=== PATIENT | female | born 1985 | race Caucasian/White ===

== ENCOUNTER 2016-07-21 16:49 | Observation (INO) | payer OTHER ==
[~2016-07-21] VITALS: Ht 170.2 cm; Wt 74.8 kg
[2016-07-21] MEDS ORDERED: TERBUTALINE 1 MG/ML VIAL SUBQ SCH ×2 (17:25→17:40)
[2016-07-21] MEDS ORDERED: BETAMETH ACET/BETAMETH NA PH 30 MG/5 ML VIAL IM SCH (17:36)
[2016-07-21] MEDS ORDERED: TERBUTALINE 1 MG/ML VIAL SUBQ PRN (18:00)
[2016-07-21] MEDS ORDERED: TERBUTALINE 1 MG/ML VIAL SUBQ ONE (18:10)
[2016-07-21] MEDS ORDERED: BETAMETH ACET/BETAMETH NA PH 30 MG/5 ML VIAL IM ONE (18:11)
[2016-07-21] MEDS ORDERED: NALBUPHINE 10 MG/ML AMP IVP PRN (18:35)
[2016-07-21] MEDS: LACTATED RINGERS 1,000 ML IV SCH (18:42)
[2016-07-21] MEDS ORDERED: NALBUPHINE HYDROCHLORIDE 10 MG/ML VIAL ONE (19:06)
[2016-07-21] MEDS ORDERED: MORPHINE SULFATE 10 MG/ML SYR IVP PRN (22:35)
[2016-07-21] MEDS ORDERED: PROMETHAZINE 25 MG/ML VIAL ONE (22:44)
[2016-07-21] MEDS ORDERED: MORPHINE SULFATE 10 MG/ML SYR ONE (22:44)
[2016-07-21] MEDS: PROMETHAZINE 25 MG/ML VIAL IVP PRN (22:48)
[2016-07-22] MEDS ORDERED: TERBUTALINE 2.5 MG TAB ONE ×4 (00:10→18:27)
[2016-07-22] MEDS: TERBUTALINE 2.5 MG TAB PO SCH ×3 (00:11→14:12)
[2016-07-22] MEDS ORDERED: MORPHINE SULFATE 10 MG/ML SYR IVP PRN (03:00)
[2016-07-22] MEDS ORDERED: MORPHINE SULFATE 10 MG/ML SYR ONE ×2 (03:05→12:35)
[2016-07-22] MEDS ORDERED: PROMETHAZINE 25 MG/ML VIAL ONE (03:06)
[2016-07-22] MEDS: PROMETHAZINE 25 MG/ML VIAL IVP PRN (03:09)
--- NOTE | 2016-07-22 08:46 | NUR ---
PATIENT HAS BEEN SCREENED AND CATEGORIZED LOW NUTRITION RISK. PATIENT WILL BE SEEN WITHIN 7 DAYS OF ADMISSION. 07/28/[address]
[2016-07-22] MEDS: LACTATED RINGERS 1,000 ML IV SCH ×2 (10:52→15:57)
[2016-07-22] MEDS ORDERED: CYCLOBENZAPRINE 10 MG TAB PO SCH (16:00)
[2016-07-22] MEDS ORDERED: BETAMETH ACET/BETAMETH NA PH 30 MG/5 ML VIAL IM ONE (18:27)
[2016-09-03] MEDS ORDERED: MOTRIN600 MG PO (10:48)
== END 2016-07-22 19:50 | disposition home or self-care (01) ==
LOC: MLD 16:49
PROVIDERS: ADMIT Obstetrics & Gynecology; ATTEND Obstetrics & Gynecology
DX: O26.893 Other specified pregnancy related conditions, third trimester (principal); R10.9 Unspecified abdominal pain; Z3A.32 32 weeks gestation of pregnancy
CPT/HCPCS: 36415; 76770; 76805; 80053; 81001; 85025; 85379; 85384; 85610; 85730; 90472; 96361; 96372; 96374; 96375; 96376; C1758; G0378; J0702; J2270; J2300; J2550; J3105; J7120; Q0092

== ENCOUNTER 2016-08-21 14:32 | Observation (INO) | payer OTHER ==
[~2016-08-21] VITALS: Ht 170.2 cm; Wt 63.5 kg
[2016-08-21 15:07] VITALS: BP 109/57
[2016-09-03] MEDS ORDERED: MOTRIN600 MG PO (10:48)
== END 2016-08-21 16:20 | disposition home or self-care (01) ==
LOC: MLD 14:32
PROVIDERS: ADMIT Obstetrics & Gynecology; ATTEND Obstetrics & Gynecology
DX: O26.893 Other specified pregnancy related conditions, third trimester (principal); R10.9 Unspecified abdominal pain; M54.9 Dorsalgia, unspecified; Z3A.37 37 weeks gestation of pregnancy
CPT/HCPCS: 76805; G0378; Q0092

== ENCOUNTER 2016-08-30 20:53 | Inpatient (IN) | payer OTHER ==
[~2016-08-30] VITALS: Ht 170.2 cm; Wt 78.5 kg
[2016-08-30] MEDS: LACTATED RINGERS 1,000 ML IV SCH (22:45)
[2016-08-30] MEDS ORDERED: TERBUTALINE 1 MG/ML VIAL SUBQ ONE (23:57)
[2016-08-31] MEDS ORDERED: TERBUTALINE 1 MG/ML VIAL SUBQ SCH (00:05)
[2016-08-31] MEDS ORDERED: METHYLERGONOVINE 0.2 MG/ML AMP IM PRN ×2 (02:50→06:20)
[2016-08-31] MEDS ORDERED: CARBOPROST 250 MCG/ML AMP IM PRN (02:50)
[2016-08-31 03:12] LABS: BASOPHILS # (AUTO) 0.1 K/uL (0.00-0.22); BASOPHILS % (AUTO) 0.5 % (0.0-2.0); EOSINOPHILS # (AUTO) 0.1 K/uL (0-0.4); EOSINOPHILS % (AUTO) 1.3 % (0.0-4.0); HEMATOCRIT 28.7 % (36-48); HEMOGLOBIN 8.9 g/dL (12.0-16.0); LYMPHOCYTES % (AUTO) 19.2 % (20.5-51.1); MEAN CORPUSCULAR HEMOGLOBIN 24 pg (27-31); MEAN CORPUSCULAR HGB CONC 31 g/dL (33-37); MEAN CORPUSCULAR VOLUME 76 fL (80-94); MONOCYTES # (AUTO) 0.8 K/uL (0.8-1.0); MONOCYTES % (AUTO) 7.4 % (1.7-9.3); NEUTROPHILS # (AUTO) 7.5 K/uL (1.8-7.7); NEUTROPHILS % (AUTO) 71.6 % (42.2-75.2); PLATELET COUNT (AUTO) 155 K/uL (140-450); RED BLOOD CELL COUNT(AUTO) 3.76 MIL/uL (4.20-5.40); RED CELL DISTRIBUTION WIDTH 13.2 % (11.6-13.7); WHITE BLOOD COUNT (AUTO) 10.5 K/uL (4.8-10.8)
[2016-08-31 03:13] LABS: APPEARANCE,URINE CLEAR (CLEAR); BILIRUBIN,URINE NEGATIVE (NEGATIVE); BLOOD, URINE NEGATIVE (NEGATIVE); COLOR,URINE YELLOW (YELLOW); LEUKOCYTE ESTERASE ,URINE NEGATIVE (NEGATIVE); NITRITE, URINE NEGATIVE (NEGATIVE); PROTEIN,URINE NEGATIVE (NEGATIVE); UGLUCOSE NEGATIVE (NEGATIVE); UROBILINOGEN,URINE 0.2 EU/dL (0.2 - 1)
[2016-08-31 03:37] LABS: BACTERIA,URINE None Seen /HPF (None Seen); RBC,URINE 0-5 (RARE) /HPF (0-5); SQUAMOUS EPITHELIAL CELL,UR 0-3 (FEW) /LPF (0-3 (FEW)); WBC,URINE 0-5 (RARE) /HPF (0-5)
[2016-08-31] MEDS ORDERED: ceFAZolin 1,000 MG VIAL ONE (03:57)
[2016-08-31] MEDS ORDERED: CITRIC ACID/SODIUM CITRATE 30 ML UDC ONE (03:57)
[2016-08-31] MEDS ORDERED: TERBUTALINE 2.5 MG TAB PO SCH (04:00)
[2016-08-31] MEDS: LACTATED RINGERS 1,000 ML IV SCH (04:45)
[2016-08-31] MEDS ORDERED: BUPIVACAINE-MPF 0.75% 10 ML VIAL INJ ONE (06:02)
[2016-08-31] MEDS ORDERED: ONDANSETRON 4 MG/2 ML VIAL ONE (06:02)
[2016-08-31] MEDS ORDERED: METHYLERGONOVINE 0.2 MG/ML AMP ONE ×2 (06:02→06:31)
[2016-08-31] MEDS ORDERED: KETOROLAC 30 MG/ML VIAL ONE (06:02)
[2016-08-31] MEDS ORDERED: METOCLOPRAMIDE 10 MG/2 ML INJ VIAL ONE (06:02)
[2016-08-31] MEDS ORDERED: OXYTOCIN 10 UNITS/ML VIAL ONE ×2 (06:02→06:09)
[2016-08-31] MEDS ORDERED: MORPHINE PRES FREE 10 MG/10 ML AMP IV ONE (06:08)
[2016-08-31] MEDS ORDERED: KETOROLAC 30 MG/ML VIAL IVP PRN (06:20)
[2016-08-31] MEDS ORDERED: ONDANSETRON 4 MG/2 ML VIAL IVP PRN (06:20)
[2016-08-31] MEDS ORDERED: TRIMETHOBENZAMIDE 200 MG/2 ML SYR IM PRN (06:20)
[2016-08-31] MEDS ORDERED: OXYTOCIN 20 UNITS/LR PREMIX 1,000 ML IV SCH (06:20)
[2016-08-31] MEDS ORDERED: IBUPROFEN 800 MG TAB PO PRN (06:20)
[2016-08-31] MEDS ORDERED: MEASLES, MUMPS, AND RUBELLA 1 VIAL SQVAC PRN (06:20)
[2016-08-31] MEDS ORDERED: NALOXONE 0.4 MG/ML VIAL IVP PRN ×2 (06:20)
[2016-08-31] MEDS ORDERED: diphenhydrAMINE 50 MG/ML VIAL IVP PRN (06:20)
[2016-08-31] MEDS ORDERED: TEMAZEPAM 15 MG CAP PO PRN (06:20)
[2016-08-31] MEDS ORDERED: OXYTOCIN 20 UNITS/LR PREMIX 1,000 ML IV ONE (07:39)
[2016-08-31] MEDS: OXYTOCIN 20 UNITS/LR PREMIX 1,000 ML IV SCH ×2 (09:51→18:12)
[2016-08-31] MEDS: DOCUSATE SOD/SENNA 50/8.6 MG 1 TAB PO SCH (21:00)
[2016-09-01] MEDS: OXYTOCIN 20 UNITS/LR PREMIX 1,000 ML IV SCH (02:09)
[2016-09-01] MEDS: HYDROcodone/APAP 5/325 MG 1 TAB TAB PO PRN ×2 (05:20→15:11)
[2016-09-01 05:58] LABS: BASOPHILS % (AUTO) 0.3 % (0.0-2.0); EOSINOPHILS # (AUTO) 0.1 K/uL (0-0.4); EOSINOPHILS % (AUTO) 1.3 % (0.0-4.0); HEMATOCRIT 26.7 % (36-48); HEMOGLOBIN 8.4 g/dL (12.0-16.0); LYMPHOCYTES # (AUTO) 1.5 K/uL (2.5-16.5); LYMPHOCYTES % (AUTO) 17.5 % (20.5-51.1); MEAN CORPUSCULAR HEMOGLOBIN 24 pg (27-31); MEAN CORPUSCULAR HGB CONC 31 g/dL (33-37); MEAN CORPUSCULAR VOLUME 77 fL (80-94); MONOCYTES # (AUTO) 0.6 K/uL (0.8-1.0); MONOCYTES % (AUTO) 7.4 % (1.7-9.3); NEUTROPHILS # (AUTO) 6.3 K/uL (1.8-7.7); NEUTROPHILS % (AUTO) 73.5 % (42.2-75.2); PLATELET COUNT (AUTO) 117 K/uL (140-450); RED BLOOD CELL COUNT(AUTO) 3.48 MIL/uL (4.20-5.40); RED CELL DISTRIBUTION WIDTH 13.4 % (11.6-13.7); WHITE BLOOD COUNT (AUTO) 8.5 K/uL (4.8-10.8)
[2016-09-01] MEDS: SIMETHICONE 80 MG TAB.CHEW PO PRN (09:20)
[2016-09-01] MEDS: oxyCODONE/APAP 5/325 MG 1 TAB TAB PO PRN ×2 (09:22→21:04)
[2016-09-01] MEDS: DOCUSATE SOD/SENNA 50/8.6 MG 1 TAB PO SCH (21:03)
[2016-09-02] MEDS: oxyCODONE/APAP 5/325 MG 1 TAB TAB PO PRN ×2 (04:33→17:24)
[2016-09-02] MEDS ORDERED: KETOROLAC 30 MG/ML VIAL IM PRN (08:45)
[2016-09-02] MEDS: DOCUSATE SOD/SENNA 50/8.6 MG 1 TAB PO SCH (21:53)
[2016-09-02] MEDS: HYDROcodone/APAP 5/325 MG 1 TAB TAB PO PRN (23:30)
[2016-09-03] MEDS ORDERED: IBUP-2213 PO (10:48)
[2016-09-03] MEDS ORDERED: BISACODYL 10 MG SUPP RC SCH (10:50)
[2016-09-03] MEDS ORDERED: SODIUM PHOSPHATE 118 ML ENEM RC PRN (10:50)
[2016-09-03] MEDS: SIMETHICONE 80 MG TAB.CHEW PO PRN (11:02)
[2016-09-03] MEDS: HYDROcodone/APAP 5/325 MG 1 TAB TAB PO PRN (11:02)
== END 2016-09-03 14:05 | disposition home or self-care (01) | DRG 540 ==
LOC: MLD 20:53 → OBSVTOIN 08-31 02:48 → MFCC 08-31 06:55
PROVIDERS: ADMIT Obstetrics & Gynecology; ATTEND Obstetrics & Gynecology
PROC: 10D00Z1 Extraction of Products of Conception, Low, Open Approach (ICD-10-PCS; principal; 2016-08-31 06:00)
DX: O21.1 Hyperemesis gravidarum with metabolic disturbance (principal); O60.14X0 Preterm labor third trimester with preterm delivery third trimester, not applicable or unspecified; O34.211 Maternal care for low transverse scar from previous cesarean delivery; E86.0 Dehydration; O99.284 Endocrine, nutritional and metabolic diseases complicating childbirth; Z37.0 Single live birth; O69.81X0 Labor and delivery complicated by cord around neck, without compression, not applicable or unspecified; O99.02 Anemia complicating childbirth; O99.824 Streptococcus B carrier state complicating childbirth; D64.9 Anemia, unspecified; Z3A.37 37 weeks gestation of pregnancy; Z28.21 Immunization not carried out because of patient refusal; Z83.3 Family history of diabetes mellitus; Z80.49 Family history of malignant neoplasm of other genital organs; Z80.8 Family history of malignant neoplasm of other organs or systems; Z82.49 Family history of ischemic heart disease and other diseases of the circulatory system
CPT/HCPCS: G0378 ×6; 36415; 76815; 81001; 85025; 86592; 86886; 86900; 86901; 90707; 90715; J0690; J1200; J1885; J2210; J2270; J2405; J2590; J2765; J3105; J3490; J7060; J7120; Q0092